=== PATIENT | male | born 1970 | race Caucasian/White ===

== ENCOUNTER 2016-09-11 05:49 | Day surgery (SDC) | payer BC, OTHER ==
[~2016-09-11] VITALS: Ht 180.3 cm; Wt 81.6 kg
--- NOTE | ~2016-09-11 | H ---
[facility] [place] [address] HISTORY AND PHYSICAL Name: MADISON SAMUELS Room #: 150-2 [facility] M.R.#: [id number] Admission: 09/11/16 Attend Phys: Abdifatah Melchor MD Discharge: Date of : 74 Report #: [id number] THIS REPORT FOR: //name// CC: Viktor Melchor DATE OF SERVICE: 09/10/2016 ANTICIPATED DATE OF SURGERY: 09/11/2016. CHIEF COMPLAINT: Nasal airway obstruction. HISTORY OF PRESENT ILLNESS: The patient a 45-year-old gentleman who presented in June of this year with a long history of loud snoring and gasping for air and sleep disorder breathing. Snoring was noted to be worse on his back. His physical examination at that time did demonstrate him to be in generally good health. There was a substantial amount of septal deviation noted along with turbinate hypertrophy, along with an elongated uvula. It was recommended, at that time as part of his preoperative evaluation, he have a polysomnogram performed. Polysomnogram was accomplished. He returned in August, at which time, as noted, the polysomnogram demonstrated positional sleep apnea, mild to moderate on the sides, beyond his back, with only a component of severe sleep apnea and REM stage of sleep. At that point in time, I reviewed with him the options for treatment and which included lifestyle changes and discussed both medical and surgical options for therapy. He is aware that he will benefit from correction of his nasal septum and turbinate reduction for nasal airway obstruction, even if he chose medical therapy as his primary form of treatment for sleep apnea. He has also been informed that it is unlikely, but not impossible that the surgical therapy would be curative of all his sleep apnea and they would need to have additional therapy and evaluation even after surgery. After discussing this, he does wish to proceed forward at this time. Plan will be for septoplasty and turbinate reduction under anesthesia. ALLERGIES TO MEDICATION: None. MEDICATIONS ON ADMISSION: Include allopurinol 100 mg a day, losartan 50 mg a day and Paxil CR 25 mg 2 p.o. every day. PAST MEDICAL AND SURGICAL HISTORY: Notable for extraction of wisdom teeth, history of essential hypertension, anxiety and depression. FAMILY HISTORY: Notable for cancer in his mother. REVIEW OF SYSTEMS: Negative at this time for any other known GI, , cardiovascular, pulmonary or hematopoietic issues. [address] [address] HISTORY AND PHYSICAL Name: MADISON SAMUELS Room #: 150-2 [facility] M.R.#: [id number] Admission: 09/11/16 Attend Phys: Abdifatah Melchor MD Discharge: Date of : 74 Report #: [id number] PHYSICAL EXAMINATION: VITAL SIGNS: Height of 5 feet 10, weight 170 pounds. Last recorded blood pressure on 06/30/2016 of 134/114. HEENT: Demonstrates the above-noted nasal septal deflection with turbinate hypertrophy and a slightly elongated uvula. NECK: Normal to palpation. CHEST: Clear. CARDIOVASCULAR: Regular rhythm, regular rate. ASSESSMENT: History of positional obstructive sleep apnea with REM severe sleep apnea along with deviated septum and turbinate hypertrophy. PLAN: Plan will be the above-mentioned surgery. <ELECTRONICALLY SIGNED> By: Abdifatah Melchor MD 09/11/16 0728 1241 1300 Abdifatah Melchor MD /nt
--- NOTE | ~2016-09-11 | EKG ---
[address] [address] ELECTROCARDIOGRAM REPORT Name: MADISON SAMUELS Room #: DEP [facility].#: [id number] Admission: 09/11/16 Attend Phys: Abdifatah Melchor MD Discharge: 09/11/16 Date of : 74 Report #: [id number] THIS REPORT FOR: //name// [facility] Test Date: 2016-09-11 Test Time: 07:28:05 Pat Name: MADISON SAMUELS Department: Room: Gender: M Mainframe Consultant: VASQUEZ : 1970 Requested By: Abdifatah Melchor Order Number: [id number] MD: Modesto Villaseñor Measurements Intervals [place] Rate: 64 P: 14 IA: 144 QRS: 21 QRSD: 89 T: 14 QT: 432 QTc: 446 Interpretive Statements Sinus rhythm Consider inferior infarct Artifact in lead(s) I,II,III,aVR,aVL,aVF No previous ECG available for comparison Electronically Signed On 09-14-2016 8:25:11 CDT by Modesto Villaseñor [email or web address] <ELECTRONICALLY SIGNED> By: Modesto Villaseñor MD 09/14/1625 7 7 Modesto Villaseñor MD /HARLEY
--- NOTE | ~2016-09-11 | O ---
[facility] [place] [address] OPERATIVE REPORT Name: MADISON SAMUELS Room #: 150-2 [facility] M.R.#: [id number] Admission: 09/11/16 Attend Phys: Abdifatah Melchor MD Discharge: Date of : 74 Report #: [id number] THIS REPORT FOR: //name// CC: Viktor Melchor DATE OF SERVICE: 09/11/2016 PREOPERATIVE DIAGNOSES: Nasal airway obstruction, turbinate hypertrophy, and obstructive sleep apnea. POSTOPERATIVE DIAGNOSES: Nasal airway obstruction, turbinate hypertrophy, and obstructive sleep apnea. PROCEDURE: 1. Nasal septoplasty. 2. Inferior turbinate submucous resection with outfracturing. 3. Modified palatoplasty. SURGEON: Abdifatah Melchor M.D. ANESTHESIA: General oral endotracheal. INDICATIONS: See H and P. FINDINGS: Very large bony spurs involving the vomer on the left side and also involving the maxillary crest in the anterior-inferior portion of quadrangular cartilage, right-sided compensatory turbinate hypertrophy was observed. The patient had a very elongated uvula with significant redundancy in the mid portion of the palate and lateral pharyngeal and posterior pharyngeal avila. TECHNIQUE: After obtaining consent, the patient was brought to the operating suite, appropriate timeout was performed. General oral endotracheal anesthesia was obtained. The bed was turned 90 degrees, placed in the slight head up position. Nose was prepped and draped in the usual sterile fashion. Cottonoids with Afrin were placed in the nares for vasoconstriction. About 8 mL of 1% Xylocaine, 1:100,000 epinephrine was injected on each side of the septum. Later in the case, an additional mL was injected in between each inferior turbinate and an mL was injected over the root of the soft palate. Total local anesthetic was 10 mL. After waiting several minutes for anesthetic to take effect of the tissues, a right-sided hemitransfixion incision was made and elevated a mucoperichondrial flap on the left side, all the way back to the vomer and perpendicular plate, and then continued to elevate it until the spur was then fully exposed on the left side. During the elevation below the spur, there were a couple of mucosal [facility] [address] [place] [address] OPERATIVE REPORT Name: MADISON SAMUELS Room #: 150-2 [facility]..#: [id number] Admission: 09/11/16 Attend Phys: Abdifatah Melchor MD Discharge: Date of : 74 Report #: [id number] only on the left side. A large piece of the deviated quadrangular cartilage from the inferior half was incised and a mucosal flap/tunnel was then elevated on the right side, there were no mucosal tears on the right side, I left enough anterior and superior for tip support. The deviated cartilage off the maxillary crest was removed. The bony cartilaginous junction was disarticulated. I continued elevating mucosal tunnel on the right side, fully exposing the inferior aspect of the vomer. Using Maddie scissors and punches along with Twyla forceps, I piecemeal removed the inferior portion of the bony septum, which included the bony spur. Upon removal, the septum was relatively straight, previously harvested cartilage was trimmed, morcellized, and placed back between the septal folds. I then placed the septal splint on each side and secured it in place with a 3-0 Prolene, and care being made to make sure any mucosal tear on the left side was unfurled prior to placement of the splint. Each inferior turbinate was medialized with a [place] elevator and using a microdebrider blade, submucosal resection was performed. I then outfractured each inferior turbinate with the [place] elevator. A Merogel was trifolded and placed between the septal flaps and the turbinates bilaterally to prevent any synechia. I then turned my attention to the oral cavity, where I opened the mouth and placed medium sized slotted McIvor mouth gag to expose the soft palate, the above which, local anesthetic was infiltrated. A reverse U-shaped incision was made through the soft palate, starting approximately a cm above the root of the uvula, and this was carried out through the possible arches. Using a Bovie on a setting of 15 coagulation, we developed the mucosal flap inferiorly to the tip of the uvula and elevated on the nasopharyngeal surface of the uvula, raising a nasopharyngeal flap in continuity. I then amputated the inferior 2/3 of the uvula muscle, and it was sent along with the mucosal tissue for specimen. I then continued anterior and posterior flap elevation on the root of the uvula muscle left. I then imbricated the nasopharyngeal flap against the soft palate flap with the use of simple interrupted 4-0 chromic simple and horizontal mattress sutures. At that point, the repair was fairly firm, but not too tight. An oral was placed visually by myself. At that point, the case was turned back over to anesthesia allowed to awaken in stable condition. ESTIMATED BLOOD LOSS: 100 mL. By: 1100 1207 Abdifatah Melchor MD /rosi
--- NOTE | ~2016-09-11 | S ---
[facility] [place] [address] SURGICAL PATH RPT PROCEDURE Name: BENY SAMUELS Room #: DEP [facility] M.R.#: [id number] Admission: 09/11/16 Date of : 74 Discharge: 09/11/16 Report #: [id number] Path Case #: [id number] PATHOLOGY REPORT COLLECTION DATE: 09/11/2016 RECEIVED DATE: 09/11/2016 SUBMITTING PHYS: Dr. Abdifatah Melchor OTHER PHYS: Dr. Viktor Villatoro SPECIMEN(S) RECEIVED: A.Soft palate tissue * * * * * * * * * * * * FINAL DIAGNOSIS: "Soft palate tissue", excision: - Benign squamous mucosa with submucosal tissue showing edema, vascular congestion and mild mucinous gland hyperplasia (see comment). COMMENT: No dysplasia or malignancy is seen. Clinical correlation is recommended. PATHOLOGIST: Niyah Morillo M.D. REPORT ELECTRONICALLY SIGNED BY: Niyah Morillo M.D. DATE/TIME: 09/15/2016 16:58 * * * * * * * * * * * * GROSS PATHOLOGY: Received in formalin labeled "Beny Samuels, soft palate tissue," is a pyramidal piece of ramos-pink mucosal-covered tissue measuring 2.3 x 1.4 x 1.1 cm. First Aid Attendant tissue is submitted in cassette A1. (CAA; 09/14/2016) CLINICAL HISTORY: Deviated septum INITIAL CPT CODE(S): A; 57171 Professional services performed by [facility] at [facility] [address], [place] [address] Technical services performed by [facility] at [address] [place] [address], [place] [address], [place] [address]. [facility] [address] [place] [address] SURGICAL PATH RPT PROCEDURE Name: ARVINDBENY Room #: DEP [facility] M.R.#: [id number] Admission: 09/11/16 Date of : 74 Discharge: 09/11/16 Report #: [id number] Path Case #: [id number] [address] PHONE: [phone] DIRECTOR: Jozef Lombardi M.D. * * * END OF REPORT * * *
[~2016-09-11 05:49] MED LIST: ALLOPURINOL 10100 M1 PO; COZAAR 50 MG TA50 M2 PO; PAROXETINE CR25 MG PO
[2016-09-11 07:10] VITALS: BP 143/95
[2016-09-11] MEDS ORDERED: ZOFRAN ODT4 MG DISSOLVE (12:05)
[2016-09-11] MEDS ORDERED: KEFLEX500 MG PO (12:05)
[2016-09-11] MEDS ORDERED: PERCOCET PO (12:05)
[2016-09-11 12:06] VITALS: BP 143/95
== END 2016-09-11 12:47 | disposition home or self-care (01) ==
LOC: TBA 05:49 → OR 05:49 → TBA 05:50 → OR 10:52
DX: J34.2 Deviated nasal septum (principal); J34.89 Other specified disorders of nose and nasal sinuses; G47.33 Obstructive sleep apnea (adult) (pediatric); I10 Essential (primary) hypertension; M10.9 Gout, unspecified; F32.9 Major depressive disorder, single episode, unspecified; F41.9 Anxiety disorder, unspecified; Z98.890 Other specified postprocedural states
CPT/HCPCS: 50010; 50101; 50386; 50398; 50426; 51316; 51634; 53635; 56526; 56528; 62110; 62900; 70005